=== PATIENT | male | born 1965 | race Caucasian/White ===

== ENCOUNTER 2018-09-15 04:39 | Inpatient (IN) ==
[2018-09-15] MEDS ORDERED: ONDANSETRON 4 MG/2 ML VIAL IV PRN ×2 (06:08→15:22)
[2018-09-15 06:14] LABS: Basophils # 0.1 10*3/uL (0.0-0.2); Basophils % 0.8 % (0.0-0.8); Eosinophils # 0.1 10*3/uL (0.0-0.87); Eosinophils % 0.6 % (0.00-10.9); Hematocrit 37.1 VOL% (42.0-52.0); Hemoglobin 12.2 GM/DL (14.0-18.0); Immature Granulocytes % 0.6 %; Immature Granulocytes Absolute 0.05 #; Lymphocytes % 24.5 % (21.2-54.2); Mean Corpuscular HGB Conc 32.9 GM/DL (32-36); Mean Corpuscular Hemoglobin 33 PG (27-34); Mean Corpuscular Volume 98.9 FL (87-102); Mean Platelet Volume 9.7 FL (9.6-12.0); Monocytes # 0.5 10*3/uL (0.11-0.8); Neutrophils # 5.6 10*3/uL (1.4-7.4); Neutrophils % 67.5 % (38.7-73.9); Platelet Count 161 T/CUMM (130-400); Red Blood Count 3.75 MC/CUMM (3.8-5.5); Red Cell Distribution Width 14.9 % (9.3-17.3); White Blood Count 8.3 T/CUMM (4-12)
[2018-09-15 06:31] LABS: INR 1.1; PT Patient Result 11.8 SECS
[2018-09-15 06:40] LABS: Bilirubin,Total 0.6 MG/DL (0.2-1.0); Calcium 8.5 MG/DL (8.5-10.1); Osmolality,Calculated 271.1 MOS/KG (273-304); Potassium 3.2 MMOL/L (3.5-5.1); Total Protein 7.5 G/DL (6.4-8.3)
[2018-09-15 10:02] LABS: Troponin I 0.025 NG/ML (0.00-0.045)
[2018-09-15] MEDS: MULTIVITAMIN (CENTRUM) TABLET PO SCH (11:39)
[2018-09-15] MEDS: chlordiazePOXIDE 25 MG CAPSULE PO SCH ×4 (11:39→22:18)
[2018-09-15] MEDS: LACTATED RINGERS 1,000 ML IV SCH ×2 (11:39→20:57)
[2018-09-15] MEDS: THIAMINE 100 MG TABLET PO SCH (11:39)
[2018-09-15] MEDS: FOLIC ACID 1 MG TABLET PO SCH (11:39)
[2018-09-15] MEDS: MORPHINE 4 MG/1 ML VIAL IV PRN ×2 (11:50→22:17)
[2018-09-15] MEDS ORDERED: POTASSIUM CHLORIDE 20 MEQ TABLET PO ONE (12:23)
[2018-09-15 12:25] LABS: Barbiturates Screen,Urine Negative (Negative); Benzodiazepines Screen,Urine Negative (Negative); Cannabinoid Screen,Urine Negative (Negative); Opiate Screen,Urine Positive (Negative); Phencyclidine Screen,Urine Negative (Negative)
[2018-09-15] MEDS ORDERED: METOCLOPRAMIDE 10 MG/2 ML VIAL ONE (15:11)
[2018-09-15] MEDS ORDERED: HYDROmorphone 2 MG/1 ML VIAL IV PRN (15:22)
[2018-09-15] MEDS ORDERED: ceFAZolin 1,000 MG VIAL ONE ×2 (15:28→15:29)
[2018-09-15] MEDS ORDERED: PROPOFOL 200 MG/20 ML VIAL IV ONE (17:18)
[2018-09-15] MEDS ORDERED: SEVOFLURANE 1 UNIT/15 MINUTE INH ONE (17:18)
[2018-09-15] MEDS ORDERED: MIDAZOLAM 2 MG/2 ML VIAL ONE (17:18)
[2018-09-15] MEDS ORDERED: ROCURONIUM 100 MG/10 ML VIAL IV ONE (17:19)
[2018-09-15] MEDS ORDERED: fentaNYL 100 MCG/2 ML VIAL ONE (17:19)
[2018-09-15] MEDS ORDERED: ONDANSETRON 4 MG/2 ML VIAL ONE ×2 (17:19→17:32)
[2018-09-15] MEDS ORDERED: LACTATED RINGERS 1,000 ML IV ONE (17:19)
[2018-09-15] MEDS ORDERED: SUCCINYLCHOLINE 200 MG/10 ML VIAL ONE (17:19)
[2018-09-15] MEDS ORDERED: ePHEDrine 50 MG/ML AMP ONE (17:19)
[2018-09-15] MEDS ORDERED: HYDROmorphone 2 MG/1 ML VIAL ONE (17:32)
[2018-09-16] MEDS: LORazepam 2 MG/1 ML VIAL IV PRN ×2 (00:12→03:11)
[2018-09-16 01:55] LABS: Osmolality,Calculated 274.8 MOS/KG (273-304); Potassium 3.5 MMOL/L (3.5-5.1)
[2018-09-16 01:59] LABS: Albumin 3.6 G/DL (3.4-5.0); Bilirubin,Total 1.7 MG/DL (0.2-1.0); Calcium 8.1 MG/DL (8.5-10.1); Osmolality,Calculated 274.8 MOS/KG (273-304); Potassium 3.5 MMOL/L (3.5-5.1); Total Protein 6.7 G/DL (6.4-8.3)
[2018-09-16] MEDS: chlordiazePOXIDE 25 MG CAPSULE PO SCH ×6 (02:10→22:09)
[2018-09-16 02:36] LABS: CKMB % 1.2 %
[2018-09-16] MEDS: POTASSIUM CHLORIDE 20 MEQ TABLET PO PRN ×2 (03:11→05:07)
[2018-09-16 04:00] LABS: Folate 9.3 NG/ML (5.4-24.0)
[2018-09-16] MEDS: LACTATED RINGERS 1,000 ML IV SCH (07:46)
[2018-09-16] MEDS: MORPHINE 4 MG/1 ML VIAL IV PRN ×3 (08:35→22:08)
[2018-09-16] MEDS: THIAMINE 100 MG TABLET PO SCH (08:36)
[2018-09-16] MEDS: MULTIVITAMIN (CENTRUM) TABLET PO SCH (08:36)
[2018-09-16] MEDS: FOLIC ACID 1 MG TABLET PO SCH (08:36)
[2018-09-16] MEDS: ASPIRIN EC 81 MG TABLET PO SCH (11:31)
[2018-09-16] MEDS: FUROSEMIDE 20 MG TABLET PO SCH (11:31)
[2018-09-16] MEDS: amLODIPine 5 MG TABLET PO SCH (11:31)
[2018-09-16 12:23] LABS: Basophils % 0.6 % (0.0-0.8); Eosinophils # 0.1 10*3/uL (0.0-0.87); Eosinophils % 0.8 % (0.00-10.9); Hematocrit 32.4 VOL% (42.0-52.0); Hemoglobin 10.5 GM/DL (14.0-18.0); Immature Granulocytes % 0.3 %; Immature Granulocytes Absolute 0.02 #; Lymphocytes # 1.2 10*3/uL (1.4-4.0); Lymphocytes % 18.2 % (21.2-54.2); Mean Corpuscular HGB Conc 32.4 GM/DL (32-36); Mean Corpuscular Hemoglobin 33 PG (27-34); Mean Corpuscular Volume 100.9 FL (87-102); Mean Platelet Volume 10.1 FL (9.6-12.0); Monocytes # 0.7 10*3/uL (0.11-0.8); Monocytes % 10.7 % (1.7-12.7); Neutrophils # 4.6 10*3/uL (1.4-7.4); Neutrophils % 69.4 % (38.7-73.9); Platelet Count 117 T/CUMM (130-400); Red Blood Count 3.21 MC/CUMM (3.8-5.5); Red Cell Distribution Width 15.3 % (9.3-17.3); White Blood Count 6.7 T/CUMM (4-12)
[2018-09-17] MEDS: chlordiazePOXIDE 25 MG CAPSULE PO SCH ×3 (01:56→11:47)
[2018-09-17 04:05] LABS: Troponin I 0.051 NG/ML (0.00-0.045)
[2018-09-17 06:01] LABS: Basophils % 0.7 % (0.0-0.8); Eosinophils # 0.1 10*3/uL (0.0-0.87); Eosinophils % 2.1 % (0.00-10.9); Hematocrit 34.3 VOL% (42.0-52.0); Hemoglobin 10.7 GM/DL (14.0-18.0); Immature Granulocytes % 0.4 %; Immature Granulocytes Absolute 0.02 #; Lymphocytes # 1.4 10*3/uL (1.4-4.0); Mean Corpuscular HGB Conc 31.2 GM/DL (32-36); Mean Corpuscular Hemoglobin 32 PG (27-34); Mean Corpuscular Volume 102.1 FL (87-102); Monocytes # 0.7 10*3/uL (0.11-0.8); Monocytes % 12.6 % (1.7-12.7); Neutrophils # 3.4 10*3/uL (1.4-7.4); Neutrophils % 60.2 % (38.7-73.9); Platelet Count 111 T/CUMM (130-400); Red Blood Count 3.36 MC/CUMM (3.8-5.5); Red Cell Distribution Width 15.1 % (9.3-17.3); White Blood Count 5.7 T/CUMM (4-12)
[2018-09-17 08:14] VITALS: BP 170/84
[2018-09-17] MEDS: THIAMINE 100 MG TABLET PO SCH (08:47)
[2018-09-17] MEDS: FUROSEMIDE 20 MG TABLET PO SCH (08:47)
[2018-09-17] MEDS: ASPIRIN EC 81 MG TABLET PO SCH (08:47)
[2018-09-17] MEDS: amLODIPine 5 MG TABLET PO SCH (08:47)
[2018-09-17] MEDS: FOLIC ACID 1 MG TABLET PO SCH (08:47)
[2018-09-17] MEDS: MULTIVITAMIN (CENTRUM) TABLET PO SCH (08:47)
== END 2018-09-17 15:16 | disposition home or self-care (01) | DRG 494 ==
LOC: N.ED 04:39 → N.EDINP 06:08 → N.3E 06:32
PROVIDERS: ADMIT Orthopaedic Surgery; ATTEND Orthopaedic Surgery